=== PATIENT | female | born 1950 | race Caucasian/White ===

== ENCOUNTER 2023-10-10 05:30 | Day surgery (SDC) | payer OTHER ==
[~2023-10-10] VITALS: Ht 165.1 cm; Wt 65.8 kg
[2023-10-10] MEDS ORDERED: fentaNYL CITRATE/PF 100 MCG/2 ML AMP ONE (07:09)
[2023-10-10] MEDS ORDERED: MIDAZOLAM HCL 2 MG/2 ML VIAL (VERSED) ONE (07:09)
[2023-10-10] MEDS ORDERED: LR 1,000 ML IV.SOLN IV ONE (07:09)
[2023-10-10] MEDS ORDERED: METOCLOPRAMIDE HCL 10 MG/2 ML VIAL ONE (07:09)
[2023-10-10] MEDS ORDERED: PROPOFOL 200MG/ 20ML VIAL (DIPRIVAN) IV ONE (07:09)
[2023-10-10] MEDS ORDERED: ONDANSETRON HCL 4 MG/2 ML VIAL ONE (07:09)
[2023-10-10] MEDS ORDERED: SIMETHICONE 40 MG/0.6 ML ML ONE (07:22)
[2023-10-10] MEDS ORDERED: LR 1,000 ML IV SCH (07:45)
[2023-10-10] MEDS ORDERED: ONDANSETRON HCL 4 MG/2 ML VIAL IVP PRN (07:45)
[2023-10-10] MEDS ORDERED: KETOROLAC TROMETHAMINE 30 MG VIAL IVP PRN (07:45)
[2023-10-10 15:25] VITALS: BP_SYST 126; PULSE 87; RESP 16; TEMP 97.6; O2SAT 98
== END 2023-10-10 09:39 | disposition home or self-care (01) ==
LOC: SDS 05:30 → SMU 05:30 → SDS 09:39
PROVIDERS: ATTEND Student in an Organized Health Care Education/Training Program
DX: K59.09 Other constipation (principal); K57.30 Diverticulosis of large intestine without perforation or abscess without bleeding; K64.8 Other hemorrhoids; M19.90 Unspecified osteoarthritis, unspecified site; J45.909 Unspecified asthma, uncomplicated
CPT/HCPCS: 45380; 99152; 88305; G0378; J2765; J3465; J2405; J2704; J3010; J7120; 45378

== ENCOUNTER 2023-12-17 14:06 | Outpatient (CLI) | payer OTHER | END 2023-12-17 20:57 | disposition home or self-care (01) | LOC: SNM 14:06 | PROVIDERS: ATTEND Student in an Organized Health Care Education/Training Program | DX: K59.09 Other constipation (principal) | CPT/HCPCS: 78264; A9541 ==